=== PATIENT | female | born 1960 | race Caucasian/White ===

== ENCOUNTER → 2017-07-27 | Outpatient (CLI) | payer OTHER ==
[2017-07-20 09:50] LABS: BASOPHIL % 0.5 % (0-2); PLATELET COUNT 189 x10^3mcL (130-400); RED CELL DISTRIBUTION WIDTH 12.3 % (11.5-14.5)
[2017-07-20 10:13] LABS: ALBUMIN 4.1 g/dL (3.4-5.0); ALKALINE PHOSPHATASE 94 U/L (46-116); ALT/SGPT 13 U/L (14-59); AST/SGOT 24 U/L (15-37); BILIRUBIN TOTAL 0.37 mg/dL (0.20-1.00); CALCIUM 9.4 mg/dL (8.5-10.1); CARBON DIOXIDE 28.4 mmol/L (21-32); CHLORIDE SERUM 106 mmol/L (98-107); CREATININE SERUM 0.8 mg/dL (0.6-1.0); GFR1 > 60 mL/min; GLUCOSE SERUM 101 mg/dL (74-106); HDL CHOLESTEROL 44 mg/dL (40-60); POTASSIUM SERUM 4.3 mmol/L (3.5-5.1); SODIUM SERUM 139 mmol/L (136-145); TOTAL PROTEIN, SERUM 7.6 g/dL (6.4-8.2)
[2017-07-20 10:15] LABS: CHOLESTEROL 251 mg/dL (<200); CHOLESTEROL/HDL RATIO 5.7; TRIGLYCERIDES 266 mg/dL (<150)
[2017-07-20 10:21] LABS: FREE T4 0.78 ng/dL (0.76-1.46); FREE THYROXINE INDEX 1.8 ug/dL (1.4-4.5); T4(THYROXINE) 5.6 ug/dL (4.7-13.3)
[2017-07-20 10:28] LABS: T3 TOTAL 0.98 ng/mL
== END | disposition home or self-care (01) ==
LOC: RD 07-20 09:25 → LB 07-20 09:25 → US 07-20 09:47
PROVIDERS: Family Medicine
PROC: BT4JZZZ Ultrasonography of Kidneys and Bladder (ICD-10-PCS; principal; 2017-07-27)
DX: N20.0 Calculus of kidney (principal); Z78.0 Asymptomatic menopausal state
CPT/HCPCS: 84439

== ENCOUNTER 2018-01-05 06:56 | Day surgery (SDC) | payer OTHER ==
[~2018-01-05] VITALS: Ht 160 cm; Wt 63.5 kg
[2018-01-05 07:22] VITALS: BP 125/78
[2018-01-05 10:21] VITALS: BP 130/72
== END 2018-01-05 10:10 | disposition home or self-care (01) ==
LOC: DS
PROVIDERS: Ophthalmology
PROC: 08RJ3JZ Replacement of Right Lens with Synthetic Substitute, Percutaneous Approach (ICD-10-PCS; principal; 2018-01-05 08:30)
DX: H25.11 Age-related nuclear cataract, right eye (principal)
CPT/HCPCS: C1780; J2250; J3010; J7040

== ENCOUNTER → 2019-09-15 | Outpatient (CLI) | payer OTHER ==
[2019-09-15 11:01] LABS: microscopic required? NO
[2019-09-15 11:50] LABS: urine erythrocyte NEGATIVE (NEGATIVE)
[2019-09-15 11:59] LABS: ALBUMIN 4.1 g/dL (3.4-5.0); ALKALINE PHOSPHATASE 66 U/L (46-116); ALT/SGPT 18 U/L (14-59); AST/SGOT 22 U/L (15-37); BILIRUBIN TOTAL 0.4 mg/dL (0.20-1.00); CALCIUM 8.9 mg/dL (8.5-10.1); CHLORIDE SERUM 104 mmol/L (98-107); CREATININE SERUM 0.8 mg/dL (0.6-1.0); GFR1 > 60 mL/min; GLUCOSE SERUM 93 mg/dL (74-106); HDL CHOLESTEROL 48 mg/dL (40-60); POTASSIUM SERUM 4.1 mmol/L (3.5-5.1); SODIUM SERUM 142 mmol/L (136-145); TOTAL PROTEIN, SERUM 7.4 g/dL (6.4-8.2); TRIGLYCERIDES 141 mg/dL (<150)
[2019-09-15 12:08] LABS: CHOLESTEROL 204 mg/dL (<200); CHOLESTEROL/HDL RATIO 4.3
== END | disposition home or self-care (01) ==
LOC: LB 10:48
DX: Z00.00 Encounter for general adult medical examination without abnormal findings (principal)